=== PATIENT | female | born 1940 | race Asian ===

== ENCOUNTER 2019-04-20 10:43 | Inpatient (IN) | payer MEDICARE, OTHER ==
[~2019-04-20] VITALS: Ht 149.9 cm; Wt 45.8 kg
[2019-04-20] MEDS ORDERED: CARV20CP PO (10:58)
[2019-04-20] MEDS ORDERED: OMEP20 PO (10:58)
[2019-04-20] MEDS ORDERED: SIMV-260 PO (10:58)
[2019-04-20] MEDS ORDERED: PARO20TA24 PO (10:58)
[2019-04-20] MEDS ORDERED: CALC3.8S NASAL (10:58)
[2019-04-20] MEDS ORDERED: ACETAMINOPHEN 325 MG TABLET PO ONE (11:15)
[2019-04-20 11:29] LABS: BASOPHILS % (AUTO) 0.9 % (0.0-2.0); EOSINOPHILS % (AUTO) 4.8 % (1.0-6.0); HEMATOCRIT 42.9 % (36-46); HEMOGLOBIN 14.5 g/dL (12.0-16.0); LYMPHOCYTES # (AUTO) 1.6 K/uL (1.0-4.8); LYMPHOCYTES % (AUTO) 40.8 % (22.0-44.0); MEAN CORPUSCULAR HGB CONC 33.8 G/dL (31.0-37.0); MEAN CORPUSCULAR VOLUME 98 fL (80-100); MONOCYTES # (AUTO) 0.2 K/uL (0.1-1.0); MONOCYTES % (AUTO) 4.5 % (2.0-9.0); PLATELET COUNT (AUTO) 228 K/uL (150-450); RED BLOOD CELL COUNT(AUTO) 4.38 MIL/uL (4.00-5.20); RED CELL DISTRIBUTION WIDTH 13.6 % (11.5-14.5)
[2019-04-20 11:38] LABS: ANION GAP 7 mmol/L (8-16); CALCIUM, TOTAL 8.8 mg/dL (8.8-10.5); CARBON DIOXIDE 29 mmol/L (22-29); CHLORIDE 106 mmol/L (98-107); GLUCOSE,RANDOM 107 mg/dL (70-110); POTASSIUM 3.8 mmol/L (3.5-5.1); SODIUM SERUM 142 mmol/L (136-145); UREA NITROGEN, BLOOD 13 mg/dL (7-18)
[2019-04-20 11:39] LABS: GLOMERULAR FILTR. RATE CALC > 60 mL/min (>60)
[2019-04-20] MEDS ORDERED: ONDANSETRON HCL 4 MG/2 ML VIAL IVP PRN (13:15)
[2019-04-20] MEDS ORDERED: ACETAMINOPHEN 325 MG TABLET PO PRN ×2 (13:15→13:30)
[2019-04-20] MEDS ORDERED: MECLIZINE HCL 25 MG TABLET PO ONE (13:15)
[2019-04-20] MEDS ORDERED: MECLIZINE HCL 25 MG TABLET PO PRN (13:30)
[2019-04-20] MEDS ORDERED: MAGNESIUM HYDROXIDE SUSPENSION 30 ML UDCUP PO PRN (13:30)
[2019-04-20] MEDS: ASPIRIN 81 MG CHEWABLE TABLET PO SCH (13:37)
[2019-04-20] MEDS: AmLODIPine BESYLATE 10 MG TABLET PO SCH (13:54)
[2019-04-20] MEDS: ATORVASTATIN CALCIUM 20 MG TABLET PO SCH (13:54)
[2019-04-20 16:12] VITALS: BP 153/76
[2019-04-20 19:38] VITALS: BP 130/57
[2019-04-20] MEDS: HEPARIN SODIUM,PORCINE 5,000 UNITS/ML VIAL SQ SCH (20:16)
[2019-04-20 23:40] VITALS: BP 101/54
[2019-04-21 04:51] VITALS: BP 112/60
[2019-04-21 07:22] VITALS: BP 137/44
[2019-04-21] MEDS ORDERED: FAMOTIDINE 20 MG TABLET PO SCH (09:00)
[2019-04-21] MEDS: AmLODIPine BESYLATE 10 MG TABLET PO SCH (10:12)
[2019-04-21] MEDS: ASPIRIN 81 MG CHEWABLE TABLET PO SCH (10:12)
[2019-04-21] MEDS: ATORVASTATIN CALCIUM 20 MG TABLET PO SCH (10:12)
[2019-04-21] MEDS: HEPARIN SODIUM,PORCINE 5,000 UNITS/ML VIAL SQ SCH (10:13)
[2019-04-21 11:18] VITALS: BP 133/74
[2019-04-21] MEDS ORDERED: AMLO10TA7 PO (15:11)
[2019-04-21] MEDS ORDERED: MECL-111 PO (15:13)
== END 2019-04-21 15:25 | disposition home or self-care (01) | DRG 149 ==
LOC: EMS 10:45 → 5S 15:13
PROVIDERS: ADMIT Internal Medicine; ATTEND Internal Medicine
DX: R42 Dizziness and giddiness (principal); E43 Unspecified severe protein-calorie malnutrition; I10 Essential (primary) hypertension; E78.00 Pure hypercholesterolemia, unspecified; M81.0 Age-related osteoporosis without current pathological fracture; F41.9 Anxiety disorder, unspecified; Z86.73 Personal history of transient ischemic attack (TIA), and cerebral infarction without residual deficits; Z91.19 Patient's noncompliance with other medical treatment and regimen; Z88.6 Allergy status to analgesic agent; Z88.5 Allergy status to narcotic agent; Z68.20 Body mass index [BMI] 20.0-20.9, adult
CPT/HCPCS: 70450; 93005; J1644

== ENCOUNTER 2019-07-31 12:22 | Emergency (ER) | payer MEDICARE, OTHER ==
[~2019-07-31] VITALS: Ht 147.3 cm; Wt 45.5 kg
[~2019-07-31 12:22] MED LIST: AMLO10TA7 PO; ATOR10TA69 PO; CALC3.8S NASAL; CARV25TA32 PO; MECL-111 PO; OMEP20 PO; PARO7.5C2 PO; SIMV-260 PO
[2019-07-31 12:57] LABS: BASOPHILS % (AUTO) 0.6 % (0.0-2.0); EOSINOPHILS % (AUTO) 0.3 % (1.0-6.0); HEMATOCRIT 40.4 % (36-46); HEMOGLOBIN 13.7 g/dL (12.0-16.0); LYMPHOCYTES # (AUTO) 1.8 K/uL (1.0-4.8); LYMPHOCYTES % (AUTO) 13.3 % (22.0-44.0); MEAN CORPUSCULAR HEMOGLOBIN 32.4 pg (26.0-34.0); MEAN CORPUSCULAR HGB CONC 33.8 G/dL (31.0-37.0); MEAN CORPUSCULAR VOLUME 96 fL (80-100); MONOCYTES # (AUTO) 0.8 K/uL (0.1-1.0); MONOCYTES % (AUTO) 6.2 % (2.0-9.0); NEUTROPHILS # (AUTO) 10.8 K/uL (1.8-7.7); NEUTROPHILS % (AUTO) 79.6 % (40.0-70.0); PLATELET COUNT (AUTO) 283 K/uL (150-450); RED BLOOD CELL COUNT(AUTO) 4.22 MIL/uL (4.00-5.20)
[2019-07-31 13:09] LABS: CALCIUM, TOTAL 9.1 mg/dL (8.8-10.5); CREATININE 1.01 mg/dL (0.60-1.30); POTASSIUM 3.4 mmol/L (3.5-5.1)
[2019-07-31 13:15] LABS: ALBUMIN 3.4 g/dL (3.4-5.0); BILIRUBIN,TOTAL 0.8 mg/dL (0.1-1.0)
[2019-07-31] MEDS ORDERED: CEPHALEXIN MONOHYDRATE 500 MG CAPSULE PO ONE (14:15)
[2019-07-31 14:49] LABS: APPEARANCE,URINE CLEAR (CLEAR); BILIRUBIN,URINE NEGATIVE (NEGATIVE); GLUCOSE, URINE (UA) NEGATIVE (NEGATIVE); KETONES,URINE NEGATIVE (NEGATIVE); LEUKOCYTE ESTERASE ,URINE SMALL (NEGATIVE); NITRATE,URINE NEGATIVE (NEGATIVE); OCCULT BLOOD,URINE TRACE (NEGATIVE); PROTEIN,URINE NEGATIVE (NEGATIVE); UROBILINOGEN,URINE 0.2 mg/dL (<=1.0)
[2019-07-31 15:03] LABS: BACTERIA,URINE None Seen /HPF (None Seen); RBC,URINE 0-2 /HPF (0-2); SQUAMOUS EPITHELIAL CELL,UR Few /LPF (None Seen)
[2019-07-31 16:42] VITALS: BP 110/63
[2019-07-31] MEDS ORDERED: LEVOFLOXACIN 250 MG TABLET PO ONE (16:45)
== END 2019-07-31 17:55 | disposition home or self-care (01) ==
LOC: EMS 12:23
DX: J18.9 Pneumonia, unspecified organism (principal); I10 Essential (primary) hypertension; E78.00 Pure hypercholesterolemia, unspecified; F41.9 Anxiety disorder, unspecified; Z88.5 Allergy status to narcotic agent; Z88.6 Allergy status to analgesic agent
CPT/HCPCS: 74176; 83605; 87040; 87086

== ENCOUNTER → 2019-09-01 | Outpatient (CLI) | payer MEDICARE, OTHER ==
[~2019-09-01] VITALS: Ht 142.2 cm; Wt 45.0 kg
[~2019-09-01] MED LIST changes: -MECL-111 PO; +MECL-160 PO
[2019-09-01 11:23] VITALS: BP 160/75
== END | disposition home or self-care (01) ==
LOC: SRCNTR 11:23
PROVIDERS: ATTEND Hospitalist
DX: K21.9 Gastro-esophageal reflux disease without esophagitis (principal); E78.5 Hyperlipidemia, unspecified; I10 Essential (primary) hypertension; R26.9 Unspecified abnormalities of gait and mobility; R42 Dizziness and giddiness
CPT/HCPCS: G0463

== ENCOUNTER 2020-03-08 12:32 | Inpatient (IN) | payer MEDICARE, OTHER ==
[~2020-03-08] VITALS: Ht 149.9 cm; Wt 46.0 kg
[~2020-03-08 12:32] MED LIST changes: -CARV20CR PO; -MULT-1239 PO; -PARO20TA24 PO
[2020-03-08] MEDS ORDERED: PARO20TA24 PO (16:12)
[2020-03-08] MEDS ORDERED: CARV20CR PO (16:12)
[2020-03-08] MEDS ORDERED: ONDANSETRON HCL 4 MG/2 ML VIAL IVP PRN ×2 (16:15→20:45)
[2020-03-08] MEDS ORDERED: ACETAMINOPHEN 325 MG TABLET PO PRN ×2 (16:15→20:45)
[2020-03-08 16:28] LABS: BASOPHILS % (AUTO) 0.6 % (0.0-2.0); EOSINOPHILS % (AUTO) 2.4 % (1.0-6.0); HEMATOCRIT 43.6 % (36-46); HEMOGLOBIN 14.8 g/dL (12.0-16.0); LYMPHOCYTES # (AUTO) 2.1 K/uL (1.0-4.8); LYMPHOCYTES % (AUTO) 38.5 % (22.0-44.0); MEAN CORPUSCULAR HEMOGLOBIN 32.4 pg (26.0-34.0); MEAN CORPUSCULAR HGB CONC 33.9 G/dL (31.0-37.0); MEAN CORPUSCULAR VOLUME 96 fL (80-100); MONOCYTES # (AUTO) 0.2 K/uL (0.1-1.0); NEUTROPHILS % (AUTO) 54.5 % (40.0-70.0); PLATELET COUNT (AUTO) 229 K/uL (150-450); RED BLOOD CELL COUNT(AUTO) 4.56 MIL/uL (4.00-5.20); RED CELL DISTRIBUTION WIDTH 13.4 % (11.5-14.5)
[2020-03-08 16:40] LABS: PROTHROMBIN TIME 10.7 SEC (9.4-11.6)
[2020-03-08 16:44] LABS: CALCIUM, TOTAL 9.5 mg/dL (8.8-10.5); CREATININE 1.06 mg/dL (0.60-1.30); POTASSIUM 3.3 mmol/L (3.5-5.1)
[2020-03-08 16:51] LABS: ALBUMIN 3.9 g/dL (3.4-5.0); BILIRUBIN,TOTAL 0.6 mg/dL (0.1-1.0); TOTAL PROTEIN, SERUM 7.9 g/dL (6.4-8.2)
[2020-03-08 18:00] VITALS: BP 145/83
[2020-03-08 20:00] VITALS: BP 140/67
[2020-03-08] MEDS ORDERED: MECLIZINE HCL 25 MG TABLET PO PRN (20:45)
[2020-03-08] MEDS ORDERED: ALBUTEROL SULFATE 2.5 MG/0.5 ML NEB SOLUTION NEB PRN (20:45)
[2020-03-08] MEDS ORDERED: IPRATROPIUM BROMIDE 0.5 MG/2.5 ML NEB SOLUTION NEB PRN (20:45)
[2020-03-08] MEDS ORDERED: MAGNESIUM HYDROXIDE SUSPENSION 30 ML UDCUP PO PRN (20:45)
[2020-03-08] MEDS ORDERED: BISACODYL 10 MG RECTAL RECTAL SUPPOSITORY PR PRN (20:45)
[2020-03-08] MEDS ORDERED: ZOLPIDEM TARTRATE 10 MG TABLET PO PRN (20:45)
[2020-03-08] MEDS ORDERED: POTASSIUM CHLORIDE 20 MEQ ER TABLET PO PRN (21:00)
[2020-03-08] MEDS: DOCUSATE SODIUM 100 MG CAPSULE PO SCH (21:28)
[2020-03-08] MEDS: SIMVASTATIN 20 MG TABLET PO SCH (21:28)
[2020-03-09] VITALS: BP 138/72
[2020-03-09 04:00] VITALS: BP 135/68
[2020-03-09 05:51] LABS: POTASSIUM 3.9 mmol/L (3.5-5.1)
[2020-03-09 08:00] VITALS: BP 135/78
[2020-03-09] MEDS: DOCUSATE SODIUM 100 MG CAPSULE PO SCH ×2 (08:46→21:00)
[2020-03-09] MEDS: CALCITONIN,SALMON,SYNTHETIC 200 UNITS/SPRAY 3.7 ML BOTTLE NASAL SCH (08:46)
[2020-03-09] MEDS: OMEPRAZOLE 20 MG CAPSULE PO SCH (08:46)
[2020-03-09] MEDS: PARoxetine HCL 20 MG TABLET PO SCH (08:47)
[2020-03-09] MEDS: AmLODIPine BESYLATE 10 MG TABLET PO SCH (08:47)
[2020-03-09] MEDS: CARVEDILOL PHOSPHATE 10 MG CR CAPSULE PO SCH (08:47)
[2020-03-09 11:56] LABS: MAGNESIUM 2.2 mg/dL (1.80-2.40); PHOSPHORUS 4.4 mg/dL (2.5-4.9)
[2020-03-09 12:00] VITALS: BP 123/66
[2020-03-09] MEDS: MULTIVITAMINS WITH MINERALS, THERAPEUTIC TABLET PO SCH (12:52)
[2020-03-09 15:00] VITALS: BP 118/70
[2020-03-09 19:40] VITALS: BP 105/55
[2020-03-09] MEDS: SIMVASTATIN 20 MG TABLET PO SCH (21:04)
[2020-03-10 06:36] LABS: EOSINOPHILS % (AUTO) 3.5 % (1.0-6.0); HEMATOCRIT 43.7 % (36-46); LYMPHOCYTES # (AUTO) 2.1 K/uL (1.0-4.8); LYMPHOCYTES % (AUTO) 38.8 % (22.0-44.0); MEAN CORPUSCULAR HEMOGLOBIN 32.9 pg (26.0-34.0); MEAN CORPUSCULAR HGB CONC 34.2 G/dL (31.0-37.0); MEAN CORPUSCULAR VOLUME 96 fL (80-100); MONOCYTES # (AUTO) 0.3 K/uL (0.1-1.0); MONOCYTES % (AUTO) 5.7 % (2.0-9.0); NEUTROPHILS # (AUTO) 2.7 K/uL (1.8-7.7); PLATELET COUNT (AUTO) 227 K/uL (150-450); RED BLOOD CELL COUNT(AUTO) 4.54 MIL/uL (4.00-5.20); RED CELL DISTRIBUTION WIDTH 13.4 % (11.5-14.5)
[2020-03-10 06:52] LABS: CALCIUM, TOTAL 9.1 mg/dL (8.8-10.5); CREATININE 1.14 mg/dL (0.60-1.30); POTASSIUM 3.8 mmol/L (3.5-5.1)
[2020-03-10 08:37] VITALS: BP 99/56
[2020-03-10] MEDS: MULTIVITAMINS WITH MINERALS, THERAPEUTIC TABLET PO SCH (08:39)
[2020-03-10] MEDS: OMEPRAZOLE 20 MG CAPSULE PO SCH (08:39)
[2020-03-10] MEDS: PARoxetine HCL 20 MG TABLET PO SCH (08:39)
[2020-03-10] MEDS: CARVEDILOL PHOSPHATE 10 MG CR CAPSULE PO SCH (08:40)
[2020-03-10] MEDS: DOCUSATE SODIUM 100 MG CAPSULE PO SCH (08:40)
[2020-03-10] MEDS: AmLODIPine BESYLATE 10 MG TABLET PO SCH (08:40)
[2020-03-10] MEDS: CALCITONIN,SALMON,SYNTHETIC 200 UNITS/SPRAY 3.7 ML BOTTLE NASAL SCH (08:41)
[2020-03-10 09:00] VITALS: BP 124/72
[2020-03-10 12:31] VITALS: BP 100/57
[2020-03-10] MEDS ORDERED: MULT-1239 PO (13:35)
== END 2020-03-10 17:17 | disposition home health service (06) | DRG 87 ==
LOC: EMS 12:34 → ICU 17:01 → 6N 03-09 15:00
PROVIDERS: ADMIT Hospitalist; ATTEND Hospitalist
DX: S06.5X0A Traumatic subdural hemorrhage without loss of consciousness, initial encounter (principal); E78.5 Hyperlipidemia, unspecified; I10 Essential (primary) hypertension; W18.30XA Fall on same level, unspecified, initial encounter; E78.00 Pure hypercholesterolemia, unspecified; M81.0 Age-related osteoporosis without current pathological fracture; F32.9 Major depressive disorder, single episode, unspecified; F41.9 Anxiety disorder, unspecified; M54.5 Low back pain; Z88.5 Allergy status to narcotic agent; Y93.89 Activity, other specified; Y92.89 Other specified places as the place of occurrence of the external cause; Y99.8 Other external cause status; Z88.8 Allergy status to other drugs, medicaments and biological substances; Z79.899 Other long term (current) drug therapy
CPT/HCPCS: 70450; 83735; 84100; 84132; 87081; 93005; 97116; 97161; 99291; G0378; 36415-L1; 36415-TC; 71045-TC

== ENCOUNTER → 2020-03-08 | Outpatient (CLI) | payer MEDICARE, OTHER ==
[~2020-03-08] MED LIST changes: +AMLO-258 PO; -AMLO10TA7 PO; +CARV20CR PO; +MULT-1239 PO; +PARO20TA24 PO
== END | disposition home or self-care (01) ==
LOC: SRCNTR 17:03
PROVIDERS: ATTEND Hospitalist
DX: R42 Dizziness and giddiness (principal); I10 Essential (primary) hypertension; E78.5 Hyperlipidemia, unspecified; K21.9 Gastro-esophageal reflux disease without esophagitis; Z91.81 History of falling
CPT/HCPCS: Q3014

== ENCOUNTER → 2020-04-05 | Outpatient (CLI) | payer MEDICARE, OTHER ==
[~2020-04-05] MED LIST changes: -ATOR10TA69 PO; +CARV20CR PO; -CARV25TA32 PO; -MECL-160 PO; +MULT-1239 PO; +PARO20TA24 PO; -PARO7.5C2 PO
== END | disposition home or self-care (01) ==
LOC: SRCNTR 12:16
PROVIDERS: ATTEND Hospitalist
DX: S06.5X9A Traumatic subdural hemorrhage with loss of consciousness of unspecified duration, initial encounter (principal); R51 Headache; R42 Dizziness and giddiness; E78.5 Hyperlipidemia, unspecified; I10 Essential (primary) hypertension; K20.9 Esophagitis, unspecified; K31.89 Other diseases of stomach and duodenum; Z79.899 Other long term (current) drug therapy; Z88.8 Allergy status to other drugs, medicaments and biological substances; X58.XXXA Exposure to other specified factors, initial encounter; Y93.89 Activity, other specified; Y92.89 Other specified places as the place of occurrence of the external cause; Y99.8 Other external cause status
CPT/HCPCS: Q3014

== ENCOUNTER → 2020-05-24 | Outpatient (CLI) | payer MEDICARE, OTHER ==
[~2020-05-24] VITALS: Ht 149.9 cm; Wt 44.0 kg
[2020-05-24 10:44] VITALS: BP 121/55
== END | disposition home or self-care (01) ==
LOC: SRCNTR 10:42
PROVIDERS: ATTEND Hospitalist
DX: R42 Dizziness and giddiness (principal); I63.9 Cerebral infarction, unspecified; K20.90 Esophagitis, unspecified without bleeding; I10 Essential (primary) hypertension; K31.89 Other diseases of stomach and duodenum; N39.0 Urinary tract infection, site not specified
CPT/HCPCS: G0463; Z7500

== ENCOUNTER → 2020-08-23 | Outpatient (CLI) | payer MEDICARE, OTHER ==
[~2020-08-23] VITALS: Ht 149.9 cm; Wt 45.3 kg
[~2020-08-23] MED LIST changes: +CARV20CP PO; -CARV20CR PO; +PARO-38 PO; -PARO20TA24 PO
[2020-08-23 11:16] VITALS: BP 127/67
== END | disposition home or self-care (01) ==
LOC: SRCNTR 10:59
PROVIDERS: ATTEND Hospitalist
DX: I10 Essential (primary) hypertension (principal); K20.90 Esophagitis, unspecified without bleeding; H81.10 Benign paroxysmal vertigo, unspecified ear; Z87.440 Personal history of urinary (tract) infections; Z88.5 Allergy status to narcotic agent; Z79.899 Other long term (current) drug therapy
CPT/HCPCS: G0463; Z7500

== ENCOUNTER → 2020-11-22 | Outpatient (CLI) | payer MEDICARE, OTHER | END | disposition home or self-care (01) | LOC: SRCNTR 10:24 | PROVIDERS: ATTEND Hospitalist | DX: R42 Dizziness and giddiness (principal); K20.90 Esophagitis, unspecified without bleeding; I10 Essential (primary) hypertension; K31.89 Other diseases of stomach and duodenum; N39.0 Urinary tract infection, site not specified; T67.01 Heatstroke and sunstroke; X58.XXXD Exposure to other specified factors, subsequent encounter | CPT/HCPCS: G0463; Z7500 ==

== ENCOUNTER → 2020-12-14 | Outpatient (CLI) | payer MEDICARE, OTHER ==
[2020-12-14 10:12] LABS: BASOPHILS % (AUTO) 0.9 % (0.0-2.0); EOSINOPHILS % (AUTO) 6.4 % (1.0-6.0); HEMATOCRIT 42.6 % (36-46); HEMOGLOBIN 14.5 g/dL (12.0-16.0); LYMPHOCYTES # (AUTO) 1.4 K/uL (1.0-4.8); LYMPHOCYTES % (AUTO) 35.9 % (22.0-44.0); MEAN CORPUSCULAR HEMOGLOBIN 32.5 pg (26.0-34.0); MEAN CORPUSCULAR VOLUME 96 fL (80-100); MONOCYTES # (AUTO) 0.2 K/uL (0.1-1.0); MONOCYTES % (AUTO) 4.5 % (2.0-9.0); NEUTROPHILS % (AUTO) 52.3 % (40.0-70.0); PLATELET COUNT (AUTO) 221 K/uL (150-450); RED BLOOD CELL COUNT(AUTO) 4.45 MIL/uL (4.00-5.20); RED CELL DISTRIBUTION WIDTH 14.2 % (11.5-14.5)
[2020-12-14 10:40] LABS: ALANINE AMINOTRANSFERASE 21 U/L (12-78); ALBUMIN 3.7 g/dL (3.4-5.0); ALKALINE PHOSPHATASE 73 U/L (46-116); ANION GAP 9 mmol/L (8-16); ASPARTATE AMINOTRANSFERASE 14 U/L (15-37); BILIRUBIN,TOTAL 0.5 mg/dL (0.1-1.0); CALCIUM, TOTAL 8.5 mg/dL (8.8-10.5); CARBON DIOXIDE 27 mmol/L (22-29); CHLORIDE 106 mmol/L (98-107); CHOL/HDL RATIO 4.2 (3.9-5.7); CHOLESTEROL 229 mg/dL (131-200); CREATININE 0.77 mg/dL (0.60-1.30); GLOMERULAR FILTR. RATE CALC > 60 mL/min (>60); GLUCOSE,RANDOM 93 mg/dL (70-110); HDL CHOLESTEROL 54 mg/dL (40-60); LDL CHOL (CALC.) 142 mg/dL (0-130); POTASSIUM 3.7 mmol/L (3.5-5.1); SODIUM SERUM 142 mmol/L (136-145); THYROID STIMULATING HORMONE 1.54 uIU/mL (0.36-3.74); TOTAL PROTEIN, SERUM 7.2 g/dL (6.4-8.2); TRIGLYCERIDES 163 mg/dL (15-150); UREA NITROGEN, BLOOD 11 mg/dL (7-18)
== END | disposition home or self-care (01) ==
LOC: LABPV 07:50
PROVIDERS: ATTEND Hospitalist
DX: I10 Essential (primary) hypertension (principal)
CPT/HCPCS: 80053; 80061; 84443; 85025

== ENCOUNTER → 2021-03-01 | Outpatient (CLI) | payer MEDICARE, OTHER ==
[~2021-03-01] VITALS: Ht 147.3 cm; Wt 45.0 kg
[2021-03-01 11:30] VITALS: BP 123/71
== END | disposition home or self-care (01) ==
LOC: SRCNTR 10:42
PROVIDERS: ATTEND Hospitalist
DX: I10 Essential (primary) hypertension (principal); N39.0 Urinary tract infection, site not specified; K31.89 Other diseases of stomach and duodenum; R42 Dizziness and giddiness; Z87.828 Personal history of other (healed) physical injury and trauma; Z87.19 Personal history of other diseases of the digestive system
CPT/HCPCS: G0463

== ENCOUNTER → 2021-06-06 | Outpatient (CLI) | payer MEDICARE, OTHER ==
[~2021-06-06] VITALS: Ht 144.8 cm; Wt 45.7 kg
[2021-06-06 09:53] VITALS: BP 127/73
== END | disposition home or self-care (01) ==
LOC: SRCNTR 09:36
PROVIDERS: ATTEND Hospitalist
DX: I10 Essential (primary) hypertension (principal); N39.0 Urinary tract infection, site not specified; K31.89 Other diseases of stomach and duodenum; K20.80 Other esophagitis without bleeding; R42 Dizziness and giddiness
CPT/HCPCS: G0463

== ENCOUNTER 2021-08-25 13:32 | Emergency (ER) | payer MEDICARE, OTHER ==
[~2021-08-25] VITALS: Ht 149.9 cm; Wt 43.2 kg
[2021-08-25 13:36] VITALS: BP 123/68
[2021-08-25 13:52] LABS: COVID AG,FIA SOURCE NASOPHARYNGEAL
== END 2021-08-25 14:56 | disposition home or self-care (01) ==
LOC: EMS 13:32
DX: U07.1 COVID-19 (principal); F41.9 Anxiety disorder, unspecified; E78.00 Pure hypercholesterolemia, unspecified; I10 Essential (primary) hypertension; Z88.5 Allergy status to narcotic agent; Z88.6 Allergy status to analgesic agent
CPT/HCPCS: 99283

== ENCOUNTER → 2021-09-04 | Outpatient (CLI) | payer MEDICARE, OTHER ==
[~2021-09-04] VITALS: Ht 144.8 cm; Wt 44.6 kg
[2021-09-04 09:45] VITALS: BP 137/70
== END | disposition home or self-care (01) ==
LOC: SRCNTR 09:25
PROVIDERS: ATTEND Hospitalist
DX: I10 Essential (primary) hypertension (principal); K20.90 Esophagitis, unspecified without bleeding; K31.89 Other diseases of stomach and duodenum; N39.0 Urinary tract infection, site not specified; U07.1 COVID-19; R42 Dizziness and giddiness; Z86.73 Personal history of transient ischemic attack (TIA), and cerebral infarction without residual deficits
CPT/HCPCS: G0463

== ENCOUNTER → 2021-09-25 | Outpatient (CLI) | payer MEDICARE, OTHER | END | disposition home or self-care (01) | LOC: RADPV 11:22 | PROVIDERS: ATTEND Hospitalist | DX: Z13.228 Encounter for screening for other metabolic disorders (principal); I89.8 Other specified noninfective disorders of lymphatic vessels and lymph nodes; E61.1 Iron deficiency; R79.1 Abnormal coagulation profile; R79.9 Abnormal finding of blood chemistry, unspecified | CPT/HCPCS: 71046 ==

== ENCOUNTER → 2021-09-26 | Outpatient (CLI) | payer MEDICARE, OTHER ==
[2021-09-26 10:03] LABS: BASOPHILS % (AUTO) 1.3 % (0.0-2.0); EOSINOPHILS % (AUTO) 6.3 % (1.0-6.0); HEMATOCRIT 42.3 % (36-46); HEMOGLOBIN 14.5 g/dL (12.0-16.0); LYMPHOCYTES # (AUTO) 1.3 K/uL (1.0-4.8); LYMPHOCYTES % (AUTO) 34.9 % (22.0-44.0); MEAN CORPUSCULAR HEMOGLOBIN 32.3 pg (26.0-34.0); MEAN CORPUSCULAR HGB CONC 34.2 G/dL (31.0-37.0); MEAN CORPUSCULAR VOLUME 94 fL (80-100); MONOCYTES # (AUTO) 0.2 K/uL (0.1-1.0); MONOCYTES % (AUTO) 4.4 % (2.0-9.0); NEUTROPHILS # (AUTO) 1.9 K/uL (1.8-7.7); NEUTROPHILS % (AUTO) 53.1 % (40.0-70.0); PLATELET COUNT (AUTO) 260 K/uL (150-450); RED BLOOD CELL COUNT(AUTO) 4.48 MIL/uL (4.00-5.20); RED CELL DISTRIBUTION WIDTH 14.3 % (11.5-14.5)
[2021-09-26 10:16] LABS: D-DIMER 1.3 mg/L FEU (0.00-0.50); PROTHROMBIN TIME 10.3 SEC (9.4-11.6)
[2021-09-26 10:30] LABS: ALANINE AMINOTRANSFERASE 14 U/L (12-78); ALBUMIN 3.6 g/dL (3.4-5.0); ALKALINE PHOSPHATASE 69 U/L (46-116); ANION GAP 6 mmol/L (8-16); ASPARTATE AMINOTRANSFERASE 15 U/L (15-37); BILIRUBIN,TOTAL 0.7 mg/dL (0.1-1.0); CALCIUM, TOTAL 8.9 mg/dL (8.8-10.5); CARBON DIOXIDE 27 mmol/L (22-29); CHLORIDE 106 mmol/L (98-107); CREATININE 0.83 mg/dL (0.60-1.30); FERRITIN 212 ng/mL (8-252); GLUCOSE,RANDOM 91 mg/dL (70-110); POTASSIUM 3.8 mmol/L (3.5-5.1); SODIUM SERUM 139 mmol/L (136-145); TOTAL PROTEIN, SERUM 7.7 g/dL (6.4-8.2); UREA NITROGEN, BLOOD 14 mg/dL (7-18)
[2021-09-26 10:32] LABS: GLOMERULAR FILTR. RATE CALC > 60 mL/min (>60)
== END | disposition home or self-care (01) ==
LOC: LABPV 08:45
PROVIDERS: ATTEND Hospitalist
DX: Z13.228 Encounter for screening for other metabolic disorders (principal); R79.9 Abnormal finding of blood chemistry, unspecified; R79.1 Abnormal coagulation profile; E66.1 Drug-induced obesity
CPT/HCPCS: 80053; 82728; 85025; 85379; 85610

== ENCOUNTER → 2021-10-02 | Outpatient (CLI) | payer MEDICARE, OTHER ==
[~2021-10-02] VITALS: Ht 144.8 cm; Wt 45.4 kg
[2021-10-02 09:58] VITALS: BP 129/72
== END | disposition home or self-care (01) ==
LOC: SRCNTR 09:45
PROVIDERS: ATTEND Hospitalist
DX: M17.32 Unilateral post-traumatic osteoarthritis, left knee (principal); I10 Essential (primary) hypertension; K31.89 Other diseases of stomach and duodenum; K20.90 Esophagitis, unspecified without bleeding; R42 Dizziness and giddiness; Z79.899 Other long term (current) drug therapy; I63.9 Cerebral infarction, unspecified; Z88.8 Allergy status to other drugs, medicaments and biological substances
CPT/HCPCS: G0463

== ENCOUNTER → 2021-10-10 | Outpatient (CLI) | payer MEDICARE, OTHER ==
[~2021-10-10] MED LIST changes: +CEPH500C3 PO
== END | disposition home or self-care (01) ==
LOC: RADMN 09:53
PROVIDERS: ATTEND Hospitalist
DX: M17.12 Unilateral primary osteoarthritis, left knee (principal); M25.562 Pain in left knee
CPT/HCPCS: 73562-TC

== ENCOUNTER 2021-10-22 09:36 | Emergency (ER) | payer MEDICARE, OTHER ==
[~2021-10-22] VITALS: Ht 152.4 cm; Wt 45.5 kg
[~2021-10-22 09:36] MED LIST changes: -CEPH500C3 PO
[2021-10-22 10:19] LABS: BASOPHILS % (AUTO) 0.3 % (0.0-2.0); EOSINOPHILS % (AUTO) 0.2 % (1.0-6.0); HEMOGLOBIN 12.7 g/dL (12.0-16.0); LYMPHOCYTES % (AUTO) 7.6 % (22.0-44.0); MEAN CORPUSCULAR HEMOGLOBIN 32.3 pg (26.0-34.0); MEAN CORPUSCULAR HGB CONC 34.4 G/dL (31.0-37.0); MEAN CORPUSCULAR VOLUME 94 fL (80-100); MONOCYTES # (AUTO) 0.8 K/uL (0.1-1.0); MONOCYTES % (AUTO) 6.2 % (2.0-9.0); NEUTROPHILS # (AUTO) 11.5 K/uL (1.8-7.7); PLATELET COUNT (AUTO) 225 K/uL (150-450); RED BLOOD CELL COUNT(AUTO) 3.93 MIL/uL (4.00-5.20)
[2021-10-22 10:20] LABS: NEUTROPHILS % (AUTO) 85.7 % (40.0-70.0)
[2021-10-22 10:27] LABS: CALCIUM, TOTAL 8.7 mg/dL (8.8-10.5); CREATININE 1.15 mg/dL (0.60-1.30); POTASSIUM 3.4 mmol/L (3.5-5.1)
[2021-10-22 10:36] LABS: LACTIC ACID 1.1 mmol/L (0.4-2.0)
[2021-10-22 10:45] VITALS: BP 122/62
[2021-10-22 10:48] LABS: APPEARANCE,URINE HAZY (CLEAR); BILIRUBIN,URINE NEGATIVE (NEGATIVE); GLUCOSE, URINE (UA) NEGATIVE (NEGATIVE); KETONES,URINE TRACE mg/dL (NEGATIVE); LEUKOCYTE ESTERASE ,URINE LARGE (NEGATIVE); NITRATE,URINE NEGATIVE (NEGATIVE); OCCULT BLOOD,URINE LARGE (NEGATIVE); PH,URINE 5.5 (5.0-8.0); PROTEIN,URINE 30-70 mg/dL (NEGATIVE); UROBILINOGEN,URINE <=1.0 mg/dL (<=1.0)
[2021-10-22 11:03] LABS: BACTERIA,URINE Many /HPF (None Seen); WBC,URINE 26-50 /HPF (0-5)
[2021-10-22] MEDS ORDERED: CEPH500C3 PO (11:28)
== END 2021-10-22 12:03 | disposition home or self-care (01) ==
LOC: EMS 09:40
DX: N12 Tubulo-interstitial nephritis, not specified as acute or chronic (principal); I10 Essential (primary) hypertension; E78.00 Pure hypercholesterolemia, unspecified; F41.9 Anxiety disorder, unspecified; Z88.5 Allergy status to narcotic agent; Z88.6 Allergy status to analgesic agent; Z79.899 Other long term (current) drug therapy
CPT/HCPCS: 80048; 81001; 83605; 85025; 87086; 99283

== ENCOUNTER → 2022-02-27 | Outpatient (CLI) | payer MEDICARE, OTHER ==
[~2022-02-27] VITALS: Ht 142.2 cm; Wt 41.9 kg
[~2022-02-27] MED LIST changes: +CARV3 PO; +CEPH-558 PO
[2022-02-27 09:13] VITALS: BP 134/70
== END | disposition home or self-care (01) ==
LOC: SRCNTR 08:36
PROVIDERS: ATTEND Hospitalist
DX: I10 Essential (primary) hypertension (principal); K21.9 Gastro-esophageal reflux disease without esophagitis; R42 Dizziness and giddiness; M16.11 Unilateral primary osteoarthritis, right hip
CPT/HCPCS: G0463

== ENCOUNTER → 2022-02-27 | Outpatient (CLI) | payer MEDICARE, OTHER ==
[~2022-02-27] MED LIST changes: -CARV3 PO
[2022-02-27 12:27] LABS: ALANINE AMINOTRANSFERASE 23 U/L (12-78); ALBUMIN 4.3 g/dL (3.4-5.0); ALKALINE PHOSPHATASE 85 U/L (46-116); ANION GAP 12 mmol/L (8-16); ASPARTATE AMINOTRANSFERASE 14 U/L (15-37); BILIRUBIN,TOTAL 0.5 mg/dL (0.1-1.0); CALCIUM, TOTAL 9.5 mg/dL (8.8-10.5); CARBON DIOXIDE 28 mmol/L (22-29); CHLORIDE 103 mmol/L (98-107); CREATININE 0.81 mg/dL (0.60-1.30); GLUCOSE,RANDOM 88 mg/dL (70-110); POTASSIUM 3.8 mmol/L (3.5-5.1); SODIUM SERUM 143 mmol/L (136-145); THYROID STIMULATING HORMONE 2.24 uIU/mL (0.36-3.74); TOTAL PROTEIN, SERUM 8.7 g/dL (6.4-8.2); UREA NITROGEN, BLOOD 13 mg/dL (7-18)
[2022-02-27 12:30] LABS: GLOMERULAR FILTR. RATE CALC > 60 mL/min (>60)
[2022-02-27 12:36] LABS: HEMOGLOBIN A1C 5.5 % (3.8-5.6)
== END | disposition home or self-care (01) ==
LOC: LABPV 10:50
PROVIDERS: ATTEND Hospitalist
DX: Z01.89 Encounter for other specified special examinations (principal)
CPT/HCPCS: 80053; 83036; 84443

== ENCOUNTER → 2022-07-22 | Outpatient (CLI) | payer MEDICARE, OTHER ==
[~2022-07-22] VITALS: Ht 144.8 cm; Wt 42.8 kg
[~2022-07-22] MED LIST changes: -CARV20CP PO; +CARV3 PO
[2022-07-22 11:05] VITALS: BP 121/73
== END | disposition home or self-care (01) ==
LOC: SRCNTR 10:38
PROVIDERS: ATTEND Hospitalist
DX: I10 Essential (primary) hypertension (principal); E78.5 Hyperlipidemia, unspecified; K21.9 Gastro-esophageal reflux disease without esophagitis; M16.11 Unilateral primary osteoarthritis, right hip; Z79.899 Other long term (current) drug therapy
CPT/HCPCS: G0463; Z7500

== ENCOUNTER → 2022-10-24 | Outpatient (CLI) | payer MEDICARE, OTHER ==
[2022-10-24 12:58] LABS: BASOPHILS % (AUTO) 1.3 % (0.0-2.0); EOSINOPHILS % (AUTO) 3.5 % (1.0-6.0); HEMATOCRIT 46.1 % (36-46); HEMOGLOBIN 15.4 g/dL (12.0-16.0); LYMPHOCYTES # (AUTO) 1.5 K/uL (1.0-4.8); LYMPHOCYTES % (AUTO) 30.3 % (22.0-44.0); MEAN CORPUSCULAR HEMOGLOBIN 32.1 pg (26.0-34.0); MEAN CORPUSCULAR HGB CONC 33.4 G/dL (31.0-37.0); MEAN CORPUSCULAR VOLUME 96 fL (80-100); MONOCYTES # (AUTO) 0.2 K/uL (0.1-1.0); MONOCYTES % (AUTO) 4.5 % (2.0-9.0); NEUTROPHILS # (AUTO) 2.9 K/uL (1.8-7.7); NEUTROPHILS % (AUTO) 60.4 % (40.0-70.0); PLATELET COUNT (AUTO) 260 K/uL (150-450); RED CELL DISTRIBUTION WIDTH 13.9 % (11.5-14.5)
[2022-10-24 13:15] LABS: ALANINE AMINOTRANSFERASE 21 U/L (12-78); ALKALINE PHOSPHATASE 91 U/L (46-116); ANION GAP 7 mmol/L (8-16); ASPARTATE AMINOTRANSFERASE 23 U/L (15-37); BILIRUBIN,TOTAL 0.5 mg/dL (0.1-1.0); CALCIUM, TOTAL 9.2 mg/dL (8.8-10.5); CARBON DIOXIDE 29 mmol/L (22-29); CHLORIDE 104 mmol/L (98-107); CHOLESTEROL 267 mg/dL (131-200); CREATININE 0.81 mg/dL (0.60-1.30); GLOMERULAR FILTR. RATE CALC > 60 mL/min (>60); GLUCOSE,RANDOM 88 mg/dL (70-110); HDL CHOLESTEROL 67 mg/dL (40-60); LDL CHOL (CALC.) 153 mg/dL (0-130); POTASSIUM 3.7 mmol/L (3.5-5.1); SODIUM SERUM 140 mmol/L (136-145); TOTAL PROTEIN, SERUM 8.1 g/dL (6.4-8.2); TRIGLYCERIDES 234 mg/dL (15-150); UREA NITROGEN, BLOOD 17 mg/dL (7-18)
[2022-10-24 14:12] LABS: APPEARANCE,URINE CLEAR (CLEAR); BILIRUBIN,URINE NEGATIVE (NEGATIVE); GLUCOSE, URINE (UA) NEGATIVE (NEGATIVE); KETONES,URINE NEGATIVE (NEGATIVE); LEUKOCYTE ESTERASE ,URINE TRACE (NEGATIVE); NITRATE,URINE NEGATIVE (NEGATIVE); OCCULT BLOOD,URINE MODERATE (NEGATIVE); PROTEIN,URINE TRACE mg/dL (NEGATIVE); SPECIFIC GRAVITIY, URINE 1.021 (1.003-1.030); UROBILINOGEN,URINE <=1.0 mg/dL (<=1.0)
[2022-10-24 14:48] LABS: BACTERIA,URINE None Seen /HPF (None Seen); RBC,URINE 0-2 /HPF (0-2); SQUAMOUS EPITHELIAL CELL,UR Few /LPF (None Seen); WBC,URINE 0-2 /HPF (0-5)
[2022-10-25 12:07] LABS: HIV 1-2 SCREEN 4TH GEN W/RFLX Non Reactive (Non Reactive)
== END | disposition home or self-care (01) ==
LOC: LABMN 12:25
PROVIDERS: ATTEND Hospitalist
DX: I10 Essential (primary) hypertension (principal); N89.8 Other specified noninflammatory disorders of vagina
CPT/HCPCS: 80053; 80061; 81001; 85025; 86592; 87389

== ENCOUNTER → 2022-10-24 | Outpatient (CLI) | payer MEDICARE, OTHER ==
[~2022-10-24] VITALS: Ht 149.9 cm; Wt 43.5 kg
[2022-10-24 11:57] VITALS: BP 138/79
== END | disposition home or self-care (01) ==
LOC: SRCNTR 11:04
PROVIDERS: ATTEND Hospitalist
DX: Z09 Encounter for follow-up examination after completed treatment for conditions other than malignant neoplasm (principal); I10 Essential (primary) hypertension; K31.89 Other diseases of stomach and duodenum; K20.90 Esophagitis, unspecified without bleeding; R42 Dizziness and giddiness; K21.9 Gastro-esophageal reflux disease without esophagitis; M17.12 Unilateral primary osteoarthritis, left knee
CPT/HCPCS: G0463

== ENCOUNTER → 2022-12-31 | Outpatient (CLI) | payer MEDICARE, OTHER ==
[~2022-12-31] VITALS: Ht 149.9 cm; Wt 43.5 kg
[2022-12-31 10:59] VITALS: BP 151/63; PULSE 67; RESP 15; TEMP 98; O2SAT 98
== END | disposition home or self-care (01) ==
LOC: SRCNTR 10:49
PROVIDERS: ATTEND Hospitalist
DX: I10 Essential (primary) hypertension (principal); K21.9 Gastro-esophageal reflux disease without esophagitis; K59.00 Constipation, unspecified; K20.90 Esophagitis, unspecified without bleeding; R42 Dizziness and giddiness; F90.9 Attention-deficit hyperactivity disorder, unspecified type; M19.90 Unspecified osteoarthritis, unspecified site
CPT/HCPCS: G0463; Z7500

== ENCOUNTER → 2023-03-03 | Outpatient (CLI) | payer MEDICARE, OTHER ==
[~2023-03-03] VITALS: Ht 149.9 cm; Wt 43.0 kg
[~2023-03-03] MED LIST changes: +CARV3.1262 PO
[2023-03-03 13:19] VITALS: BP 119/66; PULSE 87; RESP 15; TEMP 98.1; O2SAT 96
== END | disposition home or self-care (01) ==
LOC: SRCNTR 13:01
PROVIDERS: ATTEND Hospitalist
DX: I10 Essential (primary) hypertension (principal); R42 Dizziness and giddiness; F90.9 Attention-deficit hyperactivity disorder, unspecified type; K20.90 Esophagitis, unspecified without bleeding; E78.5 Hyperlipidemia, unspecified
CPT/HCPCS: G0463; Z7500

== ENCOUNTER → 2023-07-07 | Outpatient (CLI) | payer MEDICARE, OTHER ==
[~2023-07-07] VITALS: Ht 149.9 cm; Wt 43.0 kg
[2023-07-07 12:39] VITALS: BP 121/72; PULSE 87; RESP 18; TEMP 98.7; O2SAT 98
== END | disposition home or self-care (01) ==
LOC: SRCNTR 12:19
PROVIDERS: ATTEND Hospitalist
DX: R42 Dizziness and giddiness (principal); I10 Essential (primary) hypertension; E78.5 Hyperlipidemia, unspecified; R51.9 Headache, unspecified; R53.1 Weakness; K20.90 Esophagitis, unspecified without bleeding; Z79.899 Other long term (current) drug therapy; Z88.8 Allergy status to other drugs, medicaments and biological substances
CPT/HCPCS: G0463

== ENCOUNTER → 2023-07-08 | Outpatient (CLI) | payer MEDICARE, OTHER | END | disposition home or self-care (01) | LOC: RADMN 12:11 | PROVIDERS: ATTEND Hospitalist | DX: G93.89 Other specified disorders of brain (principal); H81.4 Vertigo of central origin | CPT/HCPCS: 70450 ==

== ENCOUNTER → 2023-10-15 | Outpatient (CLI) | payer MEDICARE, OTHER ==
[~2023-10-15] VITALS: Ht 149.9 cm; Wt 40.0 kg
[~2023-10-15] MED LIST changes: +ACYC-138 PO
[2023-10-15 13:42] VITALS: BP 124/72; PULSE 73; RESP 19; TEMP 99; O2SAT 98
== END | disposition home or self-care (01) ==
LOC: SRCNTR 10:38
PROVIDERS: ATTEND Hospitalist
DX: I10 Essential (primary) hypertension (principal); E78.5 Hyperlipidemia, unspecified; Z88.8 Allergy status to other drugs, medicaments and biological substances; Z87.440 Personal history of urinary (tract) infections; Z86.73 Personal history of transient ischemic attack (TIA), and cerebral infarction without residual deficits
CPT/HCPCS: G0463

== ENCOUNTER → 2023-11-26 | Outpatient (CLI) | payer MEDICARE, OTHER ==
[~2023-11-26] VITALS: Ht 149.9 cm; Wt 44.0 kg
[~2023-11-26] MED LIST changes: -CARV3.1262 PO; -CEPH-558 PO; -MULT-1239 PO
[2023-11-26 13:20] VITALS: BP 139/75; PULSE 91; RESP 16; TEMP 98.8; O2SAT 99
== END | disposition home or self-care (01) ==
LOC: SRCNTR 12:53
PROVIDERS: ATTEND Hospitalist
DX: I10 Essential (primary) hypertension (principal); E78.5 Hyperlipidemia, unspecified; Z88.5 Allergy status to narcotic agent; Z88.8 Allergy status to other drugs, medicaments and biological substances; Z79.899 Other long term (current) drug therapy
CPT/HCPCS: G0463; Z7500